=== PATIENT | female | born 1975 | race Caucasian/White ===

== ENCOUNTER 2020-11-04 09:58 | Emergency (ER) | payer SELFPAY ==
[~2020-11-04] VITALS: Ht 162.6 cm; Wt 111.5 kg
[2020-11-04] MEDS ORDERED: LYRICA75 MG PO (10:20)
[2020-11-04] MEDS ORDERED: GLUCOPHAGE PO (10:20)
[2020-11-04] MEDS ORDERED: SSRI (10:22)
[2020-11-04 10:58] LABS: BASO # 0.05 (0.02-0.10); EOS # 0.52 (0.04-0.40); EOS % 4.2 % (1.0-5.0); HEMATOCRIT 40.9 % (37.0-47.0); LYMPH# 3.93 (1.50-4.00); MEAN CELL VOLUME 88 fl (78-100); MEAN CORPUSCULAR HEMOGLOBIN 28 pg (27-31); MEAN CORPUSCULAR HGB CONC 32 g/dL (33-37); MEAN PLATELET VOLUME 10.7 fl (7.4-10.4); MONO # 0.62 (0.20-0.80); NEU # 7.33 (1.40-6.50); PLATELET COUNT 323 K/mm3 (130-400); RED BLOOD COUNT 4.66 M/mm3 (4.10-5.30); RED CELL DISTRIBUTION WIDTH 14.3 % (11.5-14.5); WHITE BLOOD COUNT 12.5 K/mm3 (4.8-10.8)
[2020-11-04 11:13] LABS: ALBUMIN 3.8 g/dL (3.5-5.0); POTASSIUM 4.1 mmol/L (3.5-5.1); SODIUM 137 mmol/L (136-145)
[2020-11-04 11:14] LABS: CALCIUM 9.6 mg/dL (8.3-10.5)
[2020-11-04 11:16] LABS: GLUCOSE 242 mg/dL (65-105); TOTAL PROTEIN 6.7 g/dL (6.4-8.3)
[2020-11-04 11:17] LABS: CARBON DIOXIDE 23 mmol/L (22-29); TOTAL BILIRUBIN 0.3 mg/dL (0.2-1.2)
[2020-11-04 11:21] LABS: AST-SGOT 26 U/L (5-34)
[2020-11-04 11:22] LABS: ALT/SGPT 41 U/L (0-55)
[2020-11-04 11:31] LABS: TROPONIN-I < 0.03 ng/mL (<0.030)
[2020-11-04] MEDS ORDERED: PROAIR HFA0.09 MG/AC IH (12:32)
[2020-11-04] MEDS ORDERED: MORGIDOX 1X100100 MG PO (12:32)
[2020-11-04 12:50] VITALS: BP 134/83
== END 2020-11-04 12:50 | disposition home or self-care (01) ==
LOC: ED 09:58
PROVIDERS: Nurse Practitioner
DX: J40 Bronchitis, not specified as acute or chronic (principal); F17.200 Nicotine dependence, unspecified, uncomplicated; Z20.822 Contact with and (suspected) exposure to COVID-19

== ENCOUNTER 2021-07-02 20:11 | Emergency (ER) | payer OTHER ==
[~2021-07-02] VITALS: Wt 111.5 kg
[~2021-07-02 20:11] MED LIST: GLUCOPHAGE PO; LYRICA75 MG PO; MORGIDOX 1X100100 MG PO; PROAIR HFA0.09 MG/AC IH; SSRI
[2021-07-02] MEDS ORDERED: NORCO 325 MG-51 TA1 PO (22:53)
[2021-07-02 23:15] VITALS: BP 129/83
[2021-07-03] MEDS ORDERED: NEXIUM20 MG PO (01:05)
[2021-07-03] MEDS ORDERED: CLARITIN LIQUI-10 MG PO (01:06)
[2021-07-03] MEDS ORDERED: MOBIC15 M1 PO (01:06)
== END 2021-07-02 23:15 | disposition home or self-care (01) ==
LOC: ED 20:11
DX: M79.671 Pain in right foot (principal); E66.9 Obesity, unspecified; X50.1XXA Overexertion from prolonged static or awkward postures, initial encounter
CPT/HCPCS: L4386